=== PATIENT | male | born 1965 | race Caucasian/White ===

== ENCOUNTER 2017-10-01 23:56 | Inpatient (IN) | payer OTHER ==
[2017-10-02] MEDS ORDERED: NITROGLYCERIN OINT 1 INCH/GM PACKET TOPICAL STA (00:32)
[2017-10-02] MEDS ORDERED: HEPARIN SODIUM,PORCINE 5,000 UNIT/ML 1 ML VIAL IV STA (00:32)
--- NOTE | 2017-10-02 00:37 | ED ---
General Adult HPI - General Chief complaint: Chest Pain Stated complaint: chest pain sent from [facility] Time Seen by Provider: 10/02/17 00:10 Source: patient Mode of arrival: ambulatory Limitations: no limitations - History of Present Illness Initial comments: Ovidio is a 51-year-old diabetic male with a past medical history significant for CAD and CABG in 2011. Patient states that because he has not had medical insurance he has not seen a primary care physician or been on any medications for approximately one year. States that he has a history of GERD as well as chronic bronchitis. He states that for the past 2-3 weeks he has noted that he has had a cough which she attributed to his bronchitis, as well as epigastric discomfort which he believed was GERD. Patient reports that he did a 14 day course of omeprazole with mild improvement in his epigastric discomfort, however he has continued to have a nonproductive cough. Patient denies any active chest pain, he does state that he has a nonproductive cough and that when he lays flat he feels as though he cannot breathe. He reports that he was prompted to go to the emergency department yesterday because after working a 10 hour day he noted that his bilateral lower extremities were swollen and that he could not "see my ankles". Patient reports that he has never noted lower extremity edema prior to yesterday and this became alarming to him. Patient was evaluated at an outside hospital where he was noted to have an elevated troponin of 2.25, and elevated BNP of greater than 10 times the normal limit, and addition he was noted to have uncontrolled blood glucose with a blood glucose of greater than 400 but no signs of DKA. Patient declined ambulance transfer and instead drove himself to our hospital for reevaluation and admission. - Related Data Home Medications Medication Instructions Recorded Confirmed No Known Home Medications 10/02/17 10/02/17 Allergies Allergy/AdvReac Type Severity Reaction Status Date / Time No Known Allergies Allergy Verified 10/02/17 00:06 Review of Systems ROS Statement: Those systems with pertinent positive or pertinent negative responses have been documented in the HPI. ROS Other: All systems not noted in ROS Statement are negative. Constitutional: Denies: fever, chills ENT: Denies: throat pain Respiratory: Reports: cough, dyspnea Cardiovascular: Reports: chest pain. Denies: palpitations Endocrine: Denies: fatigue Gastrointestinal: Reports: abdominal pain. Denies: nausea, vomiting Genitourinary: Denies: urgency, dysuria Musculoskeletal: Reports: back pain Skin: Denies: rash Neurological: Denies: headache, weakness Psychiatric: Denies: anxiety, depression Hematological/Lymphatic: Denies: easy bleeding, easy bruising Past Medical History Past Medical History: Diabetes Mellitus, GERD/Reflux, Hypertension, Myocardial Infarction ([place]) History of Any Multi-Drug Resistant Organisms: None Reported Past Surgical History: Coronary Bypass/CABG Past Psychological History: No Psychological Hx Reported Smoking Status: Current some day smoker Past Alcohol Use History: None Reported Past Drug Use History: None Reported General Exam Limitations: no limitations General appearance: alert, in no apparent distress Head exam: Present: atraumatic, normocephalic Eye exam: Present: normal appearance, PERRL ENT exam: Present: normal exam Neck exam: Present: normal inspection Respiratory exam: Absent: respiratory distress Cardiovascular Exam: Present: tachycardia GI/Abdominal exam: Present: soft. Absent: distended Rectal exam: Present: deferred Extremities exam: Present: full ROM, normal capillary refill, pedal edema Back exam: Present: normal inspection Neurological exam: Present: alert, oriented X3 Psychiatric exam: Present: normal affect, normal mood Skin exam: Present: warm, dry Course Vital Signs 10/02/17 10/02/17 00:01 01:43 Temperature 98.3 F Pulse Rate 112 H 103 H Respiratory 16 20 Rate Blood Pressure 114/79 121/77 O2 Sat by Pulse 93 L 99 Oximetry EKG Findings - EKG Comments: EKG Findings:: EKG at 12:11 AM - rate is 1:15, rhythm is sinus tachycardia, AR intervals 154, QRS 108, QTC is [address] depressions in the lateral leads. Q ST elevations. When compared to the EKG obtained at the previous hospital if no significant changes. Medical Decision Making - Medical Decision Making The patient was seen and evaluated, history was obtained from the patient and review of outside medical record Patient noted to have an elevated troponin, elevated BNP, chest x-ray suggestive of CHF in addition the patient has a blood glucose greater than 400 and received no treatment prior to transfer Considering the patient does appear to be in CHF I will treat the blood glucose with insulin and hold on IV fluid bolus Repeat labs were ordered Patient care was discussed with Dr. Campuzano who agrees with plan for admission for in STEMI with heparin infusion, nitro ointment, echo ordered for the morning and consult to cardiology Sliding scale insulin was ordered Patient continued to rest comfortably throughout his stay in the emergency Department was admitted to the hospital under the care of Dr. Campuzano. - Lab Data Result diagrams: 10/02/17 00:16 10/02/17 00:16 Lab Results 10/02/17 10/02/17 10/02/17 Range/Units 00:16 00:16 00:16 WBC 11.8 H (3.8-10.6) k/uL RBC 5.11 (4.30-5.90) m/uL Hgb 14.3 (13.0-17.5) gm/dL Hct 42.9 (39.0-53.0) % MCV 84.0 (80.0-100.0) fL MCH 28.0 (25.0-35.0) pg MCHC 33.3 (31.0-37.0) g/dL RDW 13.8 (11.5-15.5) % Plt Count 314 (150-450) k/uL Neutrophils % 82 % Lymphocytes % 12 % Monocytes % 4 % Eosinophils % 1 % Basophils % 0 % Neutrophils # 9.7 H (1.3-7.7) k/uL Lymphocytes # 1.5 (1.0-4.8) k/uL Monocytes # 0.4 (0-1.0) k/uL Eosinophils # 0.1 (0-0.7) k/uL Basophils # 0.0 (0-0.2) k/uL PT (9.0-12.0) sec INR (<1.2) APTT (22.0-30.0) sec Sodium 133 L (137-145) mmol/L Potassium 4.4 (3.5-5.1) mmol/L Chloride 98 (98-107) mmol/L Carbon Dioxide 22 (22-30) mmol/L Anion Gap 13 mmol/L BUN 17 (9-20) mg/dL Creatinine 0.60 L (0.66-1.25) mg/dL Est GFR (CKD-EPI)AfAm >90 (>60 ml/min/1.73 sqM) Est GFR (CKD-EPI)NonAf >90 (>60 ml/min/1.73 sqM) Glucose 355 H (74-99) mg/dL Calcium 9.1 (8.4-10.2) mg/dL Magnesium 2.0 (1.6-2.3) mg/dL Total Bilirubin 0.6 (0.2-1.3) mg/dL AST 53 (17-59) U/L ALT 57 (21-72) U/L Alkaline Phosphatase 94 (38-126) U/L Total Creatine Kinase 127 (55-170) U/L CK-MB (CK-2) 1.9 (0.0-2.4) ng/mL CK-MB (CK-2) Rel Index 1.5 Troponin I 2.600 H* (0.000-0.034) ng/mL NT-Pro-B Natriuret Pep pg/mL Total Protein 6.3 (6.3-8.2) g/dL Albumin 3.6 (3.5-5.0) g/dL 10/02/17 10/02/17 Range/Units 00:16 00:16 WBC (3.8-10.6) k/uL RBC (4.30-5.90) m/uL Hgb (13.0-17.5) gm/dL Hct (39.0-53.0) % MCV (80.0-100.0) fL MCH (25.0-35.0) pg MCHC (31.0-37.0) g/dL RDW (11.5-15.5) % Plt Count (150-450) k/uL Neutrophils % % Lymphocytes % % Monocytes % % Eosinophils % % Basophils % % Neutrophils # (1.3-7.7) k/uL Lymphocytes # (1.0-4.8) k/uL Monocytes # (0-1.0) k/uL Eosinophils # (0-0.7) k/uL Basophils # (0-0.2) k/uL PT 10.7 (9.0-12.0) sec INR 1.1 (<1.2) APTT 20.9 L (22.0-30.0) sec Sodium (137-145) mmol/L Potassium (3.5-5.1) mmol/L Chloride (98-107) mmol/L Carbon Dioxide (22-30) mmol/L Anion Gap mmol/L BUN (9-20) mg/dL Creatinine (0.66-1.25) mg/dL Est GFR (CKD-EPI)AfAm (>60 ml/min/1.73 sqM) Est GFR (CKD-EPI)NonAf (>60 ml/min/1.73 sqM) Glucose (74-99) mg/dL Calcium (8.4-10.2) mg/dL Magnesium (1.6-2.3) mg/dL Total Bilirubin (0.2-1.3) mg/dL AST (17-59) U/L ALT (21-72) U/L Alkaline Phosphatase (38-126) U/L Total Creatine Kinase (55-170) U/L CK-MB (CK-2) (0.0-2.4) ng/mL CK-MB (CK-2) Rel Index Troponin I (0.000-0.034) ng/mL NT-Pro-B Natriuret Pep 4760 pg/mL Total Protein (6.3-8.2) g/dL Albumin (3.5-5.0) g/dL Disposition Clinical Impression: NSTEMI (non-ST elevated myocardial infarction), Uncontrolled diabetes mellitus , Heart failure Disposition: ADMITTED IP TO THIS HOSP Referrals: None,Stated [Primary Care Provider] - 1-2 days Decision Time: 01:22
[2017-10-02 00:46] LABS: Basophils % (A) 0 %; Eosinophils # (A) 0.1 k/uL (0-0.7); Eosinophils % (A) 1 %; HCT 42.9 % (39.0-53.0); HGB 14.3 gm/dL (13.0-17.5); Lymphocytes # (A) 1.5 k/uL (1.0-4.8); Lymphocytes % (A) 12 %; MCHC 33.3 g/dL (31.0-37.0); Mean Platelet Volume 6.9; Monocytes # (A) 0.4 k/uL (0-1.0); Monocytes % (A) 4 %; Neutrophils # (A) 9.7 k/uL (1.3-7.7); Neutrophils % (A) 82 %; Platelet Count 314 k/uL (150-450); RBC 5.11 m/uL (4.30-5.90); RDW 13.8 % (11.5-15.5); WBC 11.8 k/uL (3.8-10.6)
[2017-10-02 00:57] LABS: ALT 57 U/L (21-72); AST 53 U/L (17-59); Albumin 3.6 g/dL (3.5-5.0); Alkaline Phosphatase 94 U/L (38-126); Anion Gap 13 mmol/L; Blood Urea Nitrogen 17 mg/dL (9-20); Calcium 9.1 mg/dL (8.4-10.2); Carbon Dioxide 22 mmol/L (22-30); Chloride 98 mmol/L (98-107); Glucose 355 mg/dL (74-99); Potassium 4.4 mmol/L (3.5-5.1); Sodium 133 mmol/L (137-145); Total Bilirubin 0.6 mg/dL (0.2-1.3); Total Protein 6.3 g/dL (6.3-8.2)
[2017-10-02] MEDS: HEPARIN SOD,PORK IN 0.45% NACL 25,000 UNIT in 0.45% NACL 1 500ML.BAG IV SCH (00:58)
[2017-10-02 01:07] LABS: INR 1.1 (<1.2); Prothrombin Time 10.7 sec (9.0-12.0)
--- NOTE | 2017-10-02 01:11 | US ---
EXAMINATION TYPE: US venous doppler duplex LE BI DATE OF EXAM: 10/02/2017 12:34 AM COMPARISON: NONE CLINICAL HISTORY: Pain. Edema SIDE PERFORMED: Bilateral TECHNIQUE: The lower extremity deep venous system is examined utilizing real time linear array sonog dee with graded compression, doppler sonography and color-flow sonography. VESSELS IMAGED: External Iliac Vein (EIV) Common Femoral Vein Deep Femoral Vein Greater Saphenous Vein * Femoral Vein Popliteal Vein Small Saphenous Vein * Proximal Calf Veins (* superficial vessels) Right Leg: Negative for DVT Left Leg: Negative for DVT No evidence of DVT bilateral legs. IMPRESSION: Normal exam. No evidence of deep venous thrombosis in the left and right leg.
[2017-10-02 01:13] LABS: Partial Thromboplastin Time 20.9 sec (22.0-30.0)
[2017-10-02 01:18] LABS: Creatine Kinase MB 1.9 ng/mL (0.0-2.4)
[2017-10-02 01:19] LABS: Troponin I 2.6 ng/mL (0.000-0.034)
[2017-10-02] MEDS ORDERED: NALOXONE 0.4 MG/ML 1 ML VIAL IV PRN (01:22)
[2017-10-02] MEDS ORDERED: ACETAMINOPHEN TAB 325 MG TAB PO PRN (01:22)
[2017-10-02 03:09] LABS: Glucose,Whole Blood 272 mg/dL (75-99)
[2017-10-02 05:51] LABS: Glucose,Whole Blood 272 mg/dL (75-99)
[2017-10-02] MEDS: INSULIN ASPART 100 UNIT/ML 1 ML 10 ML VIAL SQ SCH ×4 (06:09→21:28)
[2017-10-02 06:53] LABS: Creatine Kinase MB 1.8 ng/mL (0.0-2.4)
[2017-10-02 06:56] LABS: Troponin I 2.51 ng/mL (0.000-0.034)
[2017-10-02] MEDS ORDERED: NITROGLYCERIN SL TABS 0.4 MG TAB SUBLINGUAL PRN (08:12)
[2017-10-02] MEDS ORDERED: SODIUM CHLORIDE 0.9% 1,000 ML in EMPTY BAG 1 BAG IV ONE (08:12)
[2017-10-02] MEDS ORDERED: ALPRAZolam 0.25 MG TAB PO PRN (08:12)
--- NOTE | 2017-10-02 09:37 | CONS ---
CONSULTATION Mr. Arrington is a 51-year-old male who was transferred from [facility] for cardiac evaluation. Patient has underwent coronary artery bypass grafting in 2011 and has not seen a physician in a while because of his insurance. He has a history of chronic tobacco use, 2 packs a day, diabetes mellitus, and hyperlipidemia. He has not been taking any medication for over a year. For the last 2 weeks, he has been complaining of progressive symptoms of dyspnea, cough, and symptoms that suggest gastroesophageal reflux disease to him, then started to have peripheral edema, clear PND and orthopnea and severe limitation in his physical activity. He went to the emergency room at [facility] yesterday and was found to have elevation of his troponin and evidence of congestive heart failure and was transferred to [facility]. Prior to this, patient says that he has been active physically without any difficulty. He denies any dizziness, palpitation. No clear symptoms of progressive angina or change in his breathing up to the last few weeks. He has no history of documented arrhythmia. He has underwent repeat cardiac catheterization 2 years ago in [facility] and according to him, 2 of 3 bypasses were open, had collateral on the third one, although details of that is not available to me and clinical observation was recommended. His coronary risk factors are positive for the chronic tobacco use. He was up to 2 packs a day until the end of August. He has history of diabetes, but has not been taking any medication. History of hyperlipidemia. REVIEW OF SYSTEMS: RESPIRATORY SYSTEM: He has history of bronchitis, cough, and progressive dyspnea. GI SYSTEM: He has symptoms of gastroesophageal reflux disease. No recent GI bleeding. No peptic ulcer disease. SYSTEM: No dysuria or hematuria. NERVOUS SYSTEM: No history of stroke or seizure. SOCIAL HISTORY: Denies any alcohol abuse. He smokes as noted. PHYSICAL EXAMINATION: He is a 51-year-old male, alert, oriented, in no apparent distress. Blood pressure 114/70 with a heart rate in the 100s. HEAD: Normocephalic. EYES: Sclerae nonicteric. NECK: Good upstroke with increased jugular venous pressure. Lungs with few crackles at the bases. HEART: Regular rate and rhythm. S1, S2 with systolic murmur at the base, no rub. ABDOMEN: Soft, nontender. Positive bowel sounds, no organomegaly. EXTREMITIES: +1 edema bilaterally. LAB DATA: Revealed a troponin of 2.6 and 2.51. NT proBNP of 4760. BUN and creatinine of 17 and 0.6, potassium 4.4, hemoglobin of 14.3, white blood cell of 11.8. EKG revealed a sinus mechanism, normal axis and intervals with ST-segment changes laterally, cannot exclude ischemia with right axis deviation, left posterior fascicular block. Venous duplex scan of the lower extremity shows no evidence of DVT. His chest x-ray performed in [place] was consistent was congestive heart failure. IMPRESSION: 1. Symptoms of congestive heart failure, left ventricular systolic function is unavailable. 2. Evidence of non ST-segment elevation myocardial infarction in a patient with history of prior coronary artery bypass grafting. 3. Diabetes, not treated. 4. Hyperlipidemia. 5. Chronic tobacco use. Patient stopped recently. RECOMMENDATION: From the cardiac standpoint, patient will need coronary angiography, but I would like to wait 24 hours to improve his failure. At this time, he cannot lay supine. I will start him on IV Lasix, beta stevenson, an DECLAN inhibitor in addition to statin aspirin. I will obtain echocardiogram with Doppler. I will try to obtain the results of his prior workup that was done including the coronary artery bypass grafting and the cardiac catheterization done 2 years ago. Depending on results of testing, further recommendation will be made. Thank you for this consult. Will follow with you. CHEYANNE / JOSUEN: [id number] /
[2017-10-02] MEDS: FUROSEMIDE 10 MG/ML 4 ML VIAL IV SCH ×2 (09:44→21:28)
[2017-10-02] MEDS: ASPIRIN 81 MG PO SCH (09:44)
[2017-10-02] MEDS: ATORVASTATIN 40 MG TAB PO SCH (09:44)
[2017-10-02] MEDS: METOPROLOL TARTRATE 25 MG TAB PO SCH ×2 (09:44→21:28)
[2017-10-02] MEDS: LISINOPRIL 2.5 MG TAB PO SCH ×2 (09:45→21:28)
--- NOTE | 2017-10-02 10:12 | XR ---
EXAMINATION TYPE: XR chest 2V DATE OF EXAM: 10/02/2017 COMPARISON: 10/01/2017 and 12/01/2012 HISTORY: 51-year-old male follow-up CHF TECHNIQUE: Frontal and lateral views FINDINGS: Median sternotomy wires are present with postoperative clips. Heart borderline enlarged. Hyperinflati on with flattening of the hemidiaphragms. Trace pleural effusions are present with redemonstrated int erstitial densities and Martin B lines. Opacity is slightly more confluent at the peripheral right ba se. IMPRESSION: Continued CHF with interstitial edema. Slight worsening aeration at the right base. Trace effusions p ersist.
[2017-10-02 12:07] LABS: Hemoglobin A1C 11.1 % (4.0-6.0)
[2017-10-02 12:09] LABS: Glucose,Whole Blood 394 mg/dL (75-99)
--- NOTE | 2017-10-02 12:28 | HP ---
HISTORY AND PHYSICAL CHIEF COMPLAINT: A 51-year-old with chest pain and leg swelling. HISTORY OF PRESENT ILLNESS: A 51-year-old white male with past medical history of coronary artery disease, diabetes mellitus, hypertension, has not been taking any medications for at least 3 months. He is transferred here from [facility] for cardiac evaluation, chronic 2 packs a day smoking, diabetes mellitus, dyslipidemia, no medicines for well over a year, progressive dyspnea, cough, congestion, and leg swelling. He is able to do his job. He had increased swelling lately at which time he went to hospital with history of chronic bronchitis. 14 POINT REVIEW OF SYSTEMS: Negative except as mentioned in HPI. SOCIAL HISTORY: Single. No alcohol. Smokes 2 packs a day. Works in a machine shop. PHYSICAL EXAM: White male in no acute distress. CARDIOVASCULAR: S1, S2. LUNGS: Clear. GI: Soft. Blood pressure 114/70, respiratory rate 12-14. HEAD: Normocephalic, atraumatic. Pupils equal, round, reactive to light and accommodation. LUNGS: This is a few rales at the base. HEART: S1, S2 without any murmurs, rubs or gallops. ABDOMEN: Soft, nontender. EXTREMITIES: 1+ pedal edema. BNP of 4760, troponin 2.6, 2.51, BUN 17, creatinine 0.6, potassium 4.4, hemoglobin 14.3, white count 11.8. EKG showed sinus rhythm, ST-T lateral changes. ASSESSMENT: 1. Congestive heart failure. Echo to assess left ventricular function, non STEMI, status post coronary artery bypass grafting.. 2. [id number] diabetes mellitus, not treated. 3. Dyslipidemia. 4. Nicotine addiction. 5. Anxiety. He is to go to coronary angiogram. Possibly aspirin, beta blockers, cholesterol pills, DECLAN inhibitors will be started. Echo is pending. Please see further orders. MMODL / IJN: [id number] /
[2017-10-02 12:45] LABS: Creatine Kinase MB 1.4 ng/mL (0.0-2.4)
[2017-10-02 12:54] LABS: Troponin I 2.43 ng/mL (0.000-0.034)
[2017-10-02 16:58] LABS: Glucose,Whole Blood 282 mg/dL (75-99)
[2017-10-02 21:05] LABS: Glucose,Whole Blood 285 mg/dL (75-99)
[2017-10-03] MEDS: HEPARIN SOD,PORK IN 0.45% NACL 25,000 UNIT in 0.45% NACL 1 500ML.BAG IV SCH (00:38)
[2017-10-03 06:04] LABS: Glucose,Whole Blood 216 mg/dL (75-99)
[2017-10-03] MEDS: METOPROLOL TARTRATE 25 MG TAB PO SCH ×2 (06:33→20:52)
[2017-10-03] MEDS: ATORVASTATIN 40 MG TAB PO SCH (06:33)
[2017-10-03] MEDS: LISINOPRIL 2.5 MG TAB PO SCH ×2 (06:33→20:52)
[2017-10-03] MEDS: FUROSEMIDE 10 MG/ML 4 ML VIAL IV SCH (06:34)
[2017-10-03] MEDS: ASPIRIN 81 MG PO SCH (06:34)
[2017-10-03] MEDS: INSULIN ASPART 100 UNIT/ML 1 ML 10 ML VIAL SQ SCH ×4 (06:35→21:35)
[2017-10-03 06:41] LABS: Anion Gap 10 mmol/L; Blood Urea Nitrogen 15 mg/dL (9-20); Calcium 8.9 mg/dL (8.4-10.2); Carbon Dioxide 24 mmol/L (22-30); Chloride 101 mmol/L (98-107); Glucose 223 mg/dL (74-99); Potassium 4.2 mmol/L (3.5-5.1); Sodium 135 mmol/L (137-145)
[2017-10-03] MEDS ORDERED: ATORVASTATIN 80 MG TAB PO ONE (08:00)
[2017-10-03] MEDS ORDERED: ASPIRIN 325 MG TAB PO ONE (08:00)
[2017-10-03] MEDS ORDERED: IV FLUID CONTINUATION 1,000 ML IV ONE (09:03)
[2017-10-03] MEDS ORDERED: fentaNYL (PF) 50 MCG/ML 2 ML AMP IV ONE (09:19)
[2017-10-03] MEDS ORDERED: diphenhydrAMINE 50 MG/ML 1 ML VIAL IVP ONE (09:19)
[2017-10-03] MEDS ORDERED: LIDOCAINE 1% INJ 10MG/ML (20 ML MDV) SQ ONE (09:26)
[2017-10-03] MEDS ORDERED: MIDAZOLAM 2 MG/2 ML VIAL IV ONE (09:26)
[2017-10-03] MEDS ORDERED: BIVALIRUDIN BOLUS 250 MG/50 ML IV ONE (09:42)
[2017-10-03] MEDS ORDERED: BIVALIRUDIN 250 MG in SODIUM CHLORIDE 0.9% 50 ML IV ONE (09:44)
[2017-10-03] MEDS ORDERED: IOPAMIDOL-370 125ML BTL INJ ONE (09:45)
[2017-10-03] MEDS ORDERED: PRASUGREL 10 MG TAB PO ONE (09:45)
[2017-10-03] MEDS: NITROGLYCERIN 1000MCG/10ML SYRINGE INTRACORON ONE ×2 (09:48→09:53)
[2017-10-03] MEDS ORDERED: SODIUM CHLORIDE 0.9% 1,000 ML IV ONE (10:00)
[2017-10-03] MEDS ORDERED: IOPAMIDOL-370 100ML BTL INJ ONE ×2 (10:07→10:17)
[2017-10-03] MEDS ORDERED: NITROGLYCERIN SL TABS 0.4 MG TAB SUBLINGUAL PRN (10:27)
[2017-10-03] MEDS ORDERED: ZOLPIDEM 5 MG TAB PO PRN (10:27)
[2017-10-03] MEDS ORDERED: MAG HYDROX/AL HYDROX/SIMETH 30 ML CUP PO PRN (10:27)
[2017-10-03] MEDS ORDERED: ATROPINE SULFATE 0.1 MG/ML 10ML SYRINGE IV PRN (10:27)
[2017-10-03] MEDS ORDERED: RX INFO: IV CONTRAST WAS GIVEN 1 EACH MISC MISCELLANE PRN (10:27)
[2017-10-03] MEDS ORDERED: SODIUM CHLORIDE 0.9% 1,000 ML IV SCH (10:30)
--- NOTE | 2017-10-03 11:14 | PTCA ---
PERCUTANEOUSTRANS CORORONARY ANGIOGRAPHY Mr. Garcia is a 51-year-old male with a known history of coronary disease who presented with non ST-segment elevation myocardial infarction and symptoms of congestive heart failure, underwent cardiac catheterization, was found to have subtotally occluded saphenous vein graft to the obtuse marginal branch. In view of that, recommendation was made regarding angioplasty and stenting. The procedure, risks and complication were discussed with the patient who is in full understanding and agreement. PROCEDURE: A 6-Danish left coronary bypass guiding catheter was introduced into the system. After cannulating the ostium, attempt to advance a 0.014 balanced medium weight J-wire were unsuccessful and that wire was removed and a 0.014 Whisper J-wire was advanced, positioned distally, attempt to advance a 2.25 x 12 mm Trek balloon was unsuccessful. That balloon was removed and another 0.014 Whisper J-wire was advanced next to the first one in a angel fashion. Subsequently 1.5 x 8 mm Trek balloon was advanced and multiple inflations at 10 atmospheres were done. Following that, the balloon was removed and a 2.25 x 12 mm Trek balloon was advanced and inflation up to 10 atmospheres were done. Following that, the balloon was removed and a 2.25 x 18 mm Xience Alpine stent was deployed. It was dilated at 16 atmospheres. After removing that balloon, a 2.25 x 12 mm Xience Alpine stent was deployed proximal to the first one and it was dilated at 16 atmospheres. Subsequently an inflation overlap segment was done at 16 atmospheres. After the last inflation, after appropriate wait, the balloon and the guidewire were withdrawn back in the guiding catheter. Images were obtained, repeated. Those images reveal stable successful stenting. At that point, the guiding catheter, the balloon and the guidewire were removed and the left ventricle end-diastolic pressure was measured. Following that, catheter was removed. Sheath was sutured in place. The patient is returned to his room in stable condition. Of note, the patient had throat discomfort with the inflation that resulted improved at the end of the procedure. He had no significant EKG changes. He received Angiomax per protocol as well as oral loading dose off Effient. RESULTS: Successful stenting of a saphenous vein graft to the obtuse marginal branch with reduction in stenosis from 99% to 0%. There was retrograde filling into the distal circumflex and the second obtuse marginal branch. RECOMMENDATIONS: Patient will be continued on aspirin, Effient, beta stevenson, DECLAN inhibitors and statin. The importance of dual antiplatelet treatment were discussed with the patient who is in full understanding and agreement. Duration of procedure: 56 minutes. CHEYANNE / RYAN: [id number] /
--- NOTE | 2017-10-03 11:29 | CC ---
CARDIAC CATHETERIZATION REPORT Mr. Arrington is a 51-year-old male with a known history of diabetes, hyperlipidemia, hypertension, and chronic tobacco use as well as history of coronary artery bypass grafting who unfortunately for over a year has not seen a physician and has not been taking any medication. He presented to the emergency room with symptoms of progressive dyspnea, congestive heart failure, non ST-segment elevation myocardial infarction. On his echocardiogram was consistent with cardiomyopathy. In view of that, recommendation made regarding cardiac catheterization. The procedures, risks and complication were discussed with the patient who is in full understanding and agreement. PROCEDURE: Patient was brought to the laborer landscape in a fasting semi-sedated state after receiving fentanyl and Benadryl and achieving moderate conscious sedated state. Using Xylocaine anesthesia in the Seldinger technique, a 6-Qatari sheath was introduced in the right femoral artery. Selective right and left angiography performed 6-Qatari 4 bend right and left Maria De Jesus catheter, multiple views of the coronary artery including hemiaxial views were obtained. Following that, the 6-Qatari right Maria De Jesus catheter was used to cannulate the saphenous vein graft to the obtuse marginal branch and MOLINA to the LAD images of the grafts were obtained. Following that, angioplasty and stenting was performed. Following that, a 6-Qatari tight pigtail catheter was introduced in the left ventricle and pressures were calculated. Following that, catheters were removed, sheath was sutured in place. FINDINGS: 1. FLUOROSCOPY: There was severe calcification involving the coronary arteries, predominantly the left main and the LAD. 2. LEFT MAIN: This is a large-sized vessel bifurcating into left circumflex, left anterior descending artery, left main coronary artery has a 40% to 50% stenosis distally. 3. LEFT ANTERIOR DESCENDING ARTERY: This vessel is totally occluded proximally with no significant antegrade flow. 4. LEFT CIRCUMFLEX: This is a large dominant vessel, had a 99% stenosis proximally, giving rise to 3 obtuse marginal branches, distally bifurcating into PDA and posterolateral segment branches. There is slow flow into the obtuse marginal branch as well as the distal vessel. The vessel appears to be diffusely disease. 5. RIGHT CORONARY ARTERY: This is a nondominant vessel, diffusely diseased, giving collateral to the distal left circumflex. 6. SAPHENOUS VEIN GRAFT TO THE OBTUSE MARGINAL BRANCH: The proximal anastomotic site is patent. The distal anastomotic site appears to be patent in the proximal segment of the body of the graft. There is long area of stenosis with area up to 99% with very slow flow in the distal vessel. 7. MOLINA TO LAD: The distal anastomotic site is patent. The flow in the LAD is brisk. There is a plaque of about 60% to 70% in the distal anastomotic site. There is flow into the diagonal branch. 8. LEFT VENTRICULOGRAM: Left ventriculogram is not performed. 9. HEMODYNAMICS: There was no gradient across the aortic valve. The left ventricle end-diastolic pressure was 34 mmHg. CONCLUSION: 1. Calcified coronary artery. 2. Severe triple-vessel coronary artery disease. 3. Patent MOLINA to LAD with disease at the distal anastomotic site. 4. Subtotally occluded saphenous vein graft to the obtuse marginal branch. 5. Elevated left ventricle end-diastolic pressure. RECOMMENDATION: In view of finding anatomy, I would recommend proceeding with angioplasty and stenting of the saphenous vein graft. The procedures, risks and complications were discussed with the patient who is in full understanding and agreement. MMODL / IJN: [id number] /
[2017-10-03 11:43] LABS: Glucose,Whole Blood 241 mg/dL (75-99)
[2017-10-03] MEDS ORDERED: IPRATROPIUM-ALBUTEROL 3 ML NEB INHALATION STA (12:43)
[2017-10-03 14:08] VITALS: BMI 25.9
[2017-10-03] MEDS: IPRATROPIUM-ALBUTEROL 3 ML NEB INHALATION SCH ×2 (15:46→19:36)
[2017-10-03 17:03] LABS: Glucose,Whole Blood 221 mg/dL (75-99)
[2017-10-03] MEDS: SPIRONOLACTONE 25 MG TAB PO SCH (17:49)
[2017-10-03] MEDS: FUROSEMIDE 40 MG TAB PO SCH (20:52)
[2017-10-03 21:11] LABS: Glucose,Whole Blood 253 mg/dL (75-99)
--- NOTE | 2017-10-03 22:20 | PN ---
PROGRESS NOTE SUBJECTIVE: A 51-year-old white male with non-STEMI, who is status post angioplasty x2. CARDIOVASCULAR: S1, S2. LUNGS: Clear. GI: Soft. HEMATOLOGY: Negative Homans'. ASSESSMENT: 1. Status post non-ST elevation myocardial infarction. 2. Coronary artery disease. 3. Hypertension. 4. Poor compliance as an outpatient. commissary worker evaluating for medications the patient can afford as an outpatient. MMODL / IJN: [id number] /
[2017-10-04] MEDS: IPRATROPIUM-ALBUTEROL 3 ML NEB INHALATION PRN ×5 (00:48→20:19)
[2017-10-04 05:25] LABS: Anion Gap 11 mmol/L; Blood Urea Nitrogen 12 mg/dL (9-20); Calcium 8.6 mg/dL (8.4-10.2); Carbon Dioxide 20 mmol/L (22-30); Chloride 104 mmol/L (98-107); Glucose 249 mg/dL (74-99); Potassium 4.3 mmol/L (3.5-5.1); Sodium 135 mmol/L (137-145)
[2017-10-04] MEDS: ALPRAZolam 0.5 MG TAB PO PRN ×2 (05:55→21:32)
[2017-10-04 06:15] LABS: Glucose,Whole Blood 247 mg/dL (75-99)
[2017-10-04] MEDS: INSULIN ASPART 100 UNIT/ML 1 ML 10 ML VIAL SQ SCH ×4 (06:37→21:31)
[2017-10-04] MEDS: SPIRONOLACTONE 25 MG TAB PO SCH (10:23)
[2017-10-04] MEDS: METOPROLOL TARTRATE 25 MG TAB PO SCH ×2 (10:23→21:31)
[2017-10-04] MEDS: FUROSEMIDE 40 MG TAB PO SCH ×2 (10:23→21:31)
[2017-10-04] MEDS: ASPIRIN 81 MG PO SCH (10:23)
[2017-10-04] MEDS: PRASUGREL 10 MG TAB PO SCH (10:23)
[2017-10-04] MEDS: LISINOPRIL 2.5 MG TAB PO SCH ×2 (10:23→21:31)
[2017-10-04] MEDS: ATORVASTATIN 40 MG TAB PO SCH (10:24)
[2017-10-04 11:53] LABS: Glucose,Whole Blood 288 mg/dL (75-99)
[2017-10-04 16:47] LABS: Glucose,Whole Blood 291 mg/dL (75-99)
--- NOTE | 2017-10-04 19:36 | PN ---
PROGRESS NOTE SUBJECTIVE: 51-year-old white male remains short of breath. He states whenever he dozes off, he wakes up short of breath, he states updrafts are not really helping him. Talked about getting another chest x-ray and Cardiology, pulmonary consult on him, which will do. Continue on psychiatric social worker supervisor for medications. Vital signs stable. Afebrile. Cardiovascular S1, S2. Lungs are fairly clear. Hematology negative Homans. ASSESSMENT: 1. Status post angioplasty. 2. Acute dyspnea. 3. Suspect some chronic obstructive pulmonary disease. Continue with updrafts, oxygen p.r.n. possible sleep apnea. Get Maurizio Santiago consult. Standard postop angioplasty care. MMODL / IJN: [id number] /
--- NOTE | 2017-10-04 19:49 | XR ---
EXAMINATION TYPE: XR chest 2V DATE OF EXAM: 10/04/2017 COMPARISON: 10/02/2017 INDICATION: Dyspnea TECHNIQUE: Frontal and lateral views of the chest are obtained. FINDINGS: The heart size is normal. The pulmonary vasculature is prominent. Bibasilar infiltrates are present. Small bilateral pleural effusions are present. IMPRESSION: 1. Small bilateral pleural effusions and bibasilar infiltrates. Follow-up is recommended
[2017-10-04 21:12] LABS: Glucose,Whole Blood 298 mg/dL (75-99)
--- NOTE | 2017-10-04 22:21 | PN ---
PROGRESS NOTE This patient presented with congestive heart failure, ischemic cardiomyopathy. Underwent a stent to the saphenous vein graft to the circumflex coronary artery. Patient is doing fairly well. He remains stable. The patient does have a severely impaired left ventricular systolic function. Patient's blood pressure is 110/75 mmHg. First and second heart sounds are normal. Lungs are clear to auscultation and percussion. The patient will be ambulated. Continue the current medications. If the patient's blood pressure permits, we will increase the dose of the Zestril MMODL / IJN: [id number] /
[2017-10-05 06:12] LABS: Glucose,Whole Blood 199 mg/dL (75-99)
[2017-10-05] MEDS: INSULIN ASPART 100 UNIT/ML 1 ML 10 ML VIAL SQ SCH ×4 (06:42→21:25)
[2017-10-05] MEDS: ATORVASTATIN 40 MG TAB PO SCH (10:22)
[2017-10-05] MEDS: LISINOPRIL 2.5 MG TAB PO SCH ×2 (10:22→20:11)
[2017-10-05] MEDS: METOPROLOL TARTRATE 25 MG TAB PO SCH ×2 (10:22→20:11)
[2017-10-05] MEDS: ASPIRIN 81 MG PO SCH (10:22)
[2017-10-05] MEDS: FUROSEMIDE 40 MG TAB PO SCH ×2 (10:22→20:10)
[2017-10-05] MEDS: SPIRONOLACTONE 25 MG TAB PO SCH (10:23)
[2017-10-05] MEDS: PRASUGREL 10 MG TAB PO SCH (10:23)
[2017-10-05] MEDS: IPRATROPIUM-ALBUTEROL 3 ML NEB INHALATION PRN ×2 (11:20→19:59)
[2017-10-05 11:46] LABS: Glucose,Whole Blood 271 mg/dL (75-99)
[2017-10-05 17:27] LABS: Glucose,Whole Blood 292 mg/dL (75-99)
[2017-10-05] MEDS: methylPREDNISolone SOD SUCCI 125 MG/2 ML VIAL IV SCH ×2 (18:11→20:11)
[2017-10-05] MEDS: BUDESONIDE 0.5 MG/2 ML NEBU INHALATION SCH (20:01)
[2017-10-05] MEDS: HEPARIN SODIUM,PORCINE 5,000 UNIT/ML 1 ML VIAL SQ SCH (20:10)
[2017-10-05] MEDS: FAMOTIDINE 20 MG TAB PO SCH (20:10)
[2017-10-05 20:54] LABS: Glucose,Whole Blood 268 mg/dL (75-99)
--- NOTE | 2017-10-05 21:04 | CONS ---
CONSULTATION Mode Arrington is a 51-year-old male who presented to the ED at [facility] with a 2-3 week history of cough with wheezing and shortness of breath. He subsequently was seen in the hospital, thought to have an acute myocardial infarction and underwent cardiac cath with percutaneous transluminal angioplasty of the saphenous vein graft of his previous coronary artery bypass. He continues to have cough and some shortness of breath and a pulmonary consultation was placed. He denies any chest pain at this time. He gives no previous history of asthma or COPD, but has been a smoker in the past and does have episodes where he has cough and wheezing. He did not seek medical attention and apparently because he did not have any insurance. PAST MEDICAL HISTORY: Positive for coronary artery disease status post coronary artery bypass. No clear history of COPD or asthma. History of congestive heart failure, hypertension, diabetes mellitus type 2. FAMILY HISTORY: Positive for asthma apparently in one of his cousin. SOCIAL HISTORY: Patient smoked 1 and half packs of cigarettes per day. 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 MEDICATIONS: At this time include acetaminophen, Maalox, DuoNeb, Xanax, aspirin, Lipitor, atropine, Pepcid, Lasix, heparin, Zestril, Lopressor, Nitrostat, Effient, Aldactone, and Ambien. REVIEW OF SYSTEMS: Noncontributory. PHYSICAL EXAMINATION: Respiratory rate is 16, pulse rate of 88, temperature 97.4, blood pressure 92/53, O2 saturation on room air is 97%. HEENT reveals pupils that are equal. Chest with decreased breath sounds. There is wheeze on forced expiration. Cardiovascular system reveals S1, S2. Abdomen is soft. There is no pedal edema. LABS: Reveal sugar of 271. White count 11.8, eosinophil count of 0.1 thousand. Sodium 135, potassium 4.3, chloride 104, bicarb 20, BUN 12, creatinine 0.4. IMPRESSION: At this time: 1. Acute myocardial infarction status post angioplasty with known coronary artery disease. 2. Asthma with chronic obstructive pulmonary disease is likely with acute exacerbation. 3. Hypertension. 4. Diabetes mellitus, type 2. At this point in time, keep him on a short course of Solu-Medrol. Keep him on montelukast and aerosolized steroids. Continue on his cardiac medications. Keep him on GI and DVT prophylaxis. Depending on how he does we should make further changes to his care. He was counseled regarding his condition and this approach. We should also attempt to get her peak flow meter, so he may check his peak flows. He would benefit from close outpatient followup. Depending on how he does we should make further changes to his care. CHEYANNE / RYAN: [id number] /
[2017-10-05] MEDS: ALPRAZolam 0.5 MG TAB PO PRN (21:28)
--- NOTE | 2017-10-05 21:34 | PN ---
PROGRESS NOTE SUBJECTIVE: 51-year-old white male, status post angioplasty 2 days ago. His sugars are in the 200s. White count normal. Hemoglobin 14. Await Cardiology recommendations on discharge tomorrow. The patient wants to go home today. Blood pressures have been low in the high 90s over 60s, 94% on room air, respiratory 18, pulse rate 90s. Cardiovascular S1-S2. Lungs are fairly clear. Hematology: Negative Homans. Psych: Fair mood and affect. This patient will possibly be discharged home in the next 24 hours. Follow up as an outpatient. MMODL / IJN: [id number] /
[2017-10-06] MEDS: ALPRAZolam 0.5 MG TAB PO PRN (03:47)
[2017-10-06] MEDS: methylPREDNISolone SOD SUCCI 125 MG/2 ML VIAL IV SCH (03:49)
[2017-10-06 05:33] LABS: Glucose,Whole Blood 257 mg/dL (75-99)
[2017-10-06] MEDS: INSULIN ASPART 100 UNIT/ML 1 ML 10 ML VIAL SQ SCH ×2 (06:13→12:09)
[2017-10-06] MEDS: METOPROLOL TARTRATE 25 MG TAB PO SCH (08:34)
[2017-10-06] MEDS: FAMOTIDINE 20 MG TAB PO SCH (08:34)
[2017-10-06] MEDS: HEPARIN SODIUM,PORCINE 5,000 UNIT/ML 1 ML VIAL SQ SCH (08:34)
[2017-10-06] MEDS: LISINOPRIL 2.5 MG TAB PO SCH (08:34)
[2017-10-06] MEDS: ASPIRIN 81 MG PO SCH (08:34)
[2017-10-06] MEDS: ATORVASTATIN 40 MG TAB PO SCH (08:34)
[2017-10-06] MEDS: PRASUGREL 10 MG TAB PO SCH (08:34)
[2017-10-06] MEDS: SPIRONOLACTONE 25 MG TAB PO SCH (08:34)
[2017-10-06] MEDS: FUROSEMIDE 40 MG TAB PO SCH (08:34)
[2017-10-06] MEDS: IPRATROPIUM-ALBUTEROL 3 ML NEB INHALATION PRN (08:55)
[2017-10-06] MEDS: BUDESONIDE 0.5 MG/2 ML NEBU INHALATION SCH (08:55)
--- NOTE | 2017-10-06 11:10 | P.PN ---
Subjective Progress Note Date: 10/06/17 Interval history 10/06/2017patient being seen examined and evaluated today on rounds. He is resting up ambulating in the room on room air. He does occasionally have shortness of breath with exertion and activity. He also does have somewhat of a cough that is nonproductive. He states the breathing treatments are helping significantly and would like to go home with some sort of nebulizer or MDI. He is afebrile no further complaints. Being prepared for discharge. Objective - Vital Signs Vital signs: Vital Signs Temp 96.9 F L 10/06/17 00:00 Pulse 104 H 10/06/17 09:15 Resp 18 10/06/17 08:32 BP 105/68 10/06/17 08:32 Pulse Ox 96 10/06/17 08:58 Intake & Output 10/05/17 10/06/17 10/06/17 18:59 06:59 18:59 Intake Total 720 600 240 Balance 720 600 240 Weight 79 kg Intake: Oral 720 600 240 Other: Voiding Method Toilet Toilet Urinal Urinal # Voids 1 1 1 - Exam GENERAL EXAM: Alert, active, comfortable in no apparent distress. HEAD: Normocephalic. EYES: Normal reaction of pupils, equal size. NOSE: Clear with pink turbinates. THROAT: No erythema or exudates. NECK: No masses, no JVD. CHEST: No chest wall deformity. LUNGS: Equal air entry with wheezing on forced expiration CVS: S1 and S2 normal with no audible mumurs, regular rhythm. ABDOMEN: No hepatosplenomegaly, normal bowel sounds, no guarding or rigidity. EXTREMITIES: No edema noted, pedal pulses palpable. CENTRAL NERVOUS SYSTEM: No focal deficits, tone is normal in all 4 extremities. - Labs CBC & Chem 7: 10/02/17 00:16 10/04/17 05:01 Labs: Abnormal Lab Results - Last 24 Hours (Table) 10/05/17 10/05/17 10/05/17 Range/Units 11:37 17:05 20:52 POC Glucose (mg/dL) 271 H 292 H 268 H (75-99) mg/dL 10/06/17 Range/Units 05:31 POC Glucose (mg/dL) 257 H (75-99) mg/dL Assessment and Plan Assessment: Assessment Acute VT status post angioplasty with known CAD Asthma with acute exacerbation baseline asthma unknown type, needs a PFT COPD with acute exacerbation Hypertension Diabetes mellitus type 2 Plan Patient is cleared from a pulmonary standpoint for discharge Medications have been reviewed and will be continued as ordered. Prescription sent for MDIs Check peak flows Continue with pulmonary hygiene, coughing and deep breathing exercises, and supportive care. Supplemental oxygen to maintain oxygen saturations of 92% or better. Continue nebulizer treatments. GI and DVT prophylaxis. Would benefit from an outpatient PFT We will continue to monitor labs/results and adjust treatment as necessary. I performed an examination of the patient and discussed their management with the nurse practitioner. I have reviewed the nurse practitioner's note and agree with the documented findings and plan of care.
[2017-10-06 11:24] VITALS: BP 107/72; RESP 16; TEMP 97.6
[2017-10-06 11:25] LABS: Glucose,Whole Blood 371 mg/dL (75-99)
[2017-10-06 13:49] VITALS: PULSE 89
--- NOTE | 2017-10-06 14:52 | P.PN ---
Subjective Progress Note Date: 10/06/17 This is a 51-year-old gentleman who presented to the hospital with an acute myocardial infarction. He has a known history of coronary artery disease , he was found to have a subtotally occluded saphenous vein graft to the obtuse marginal branch for which he underwent angioplasty and stent placement by Dr. Sampson. Patient was seen and examined this morning, denies any chest pain or difficulty in breathing. He has been up ambulating without any difficulty. Hemodynamically he is stable. Patient has currently no insurance, we are trying to work with him on his discharge medication so the patient is able to afford them. He is currently on Effient which we will discontinue and put the patient on Plavix. We will also continue a baby aspirin daily, Lipitor 40, Lasix 40 mg by mouth twice a day, Zestril 2-1/2 mg twice a day, metoprolol 25 mg one tablet by mouth twice a day, and Aldactone 25 mg daily. Objective - Vital Signs Vital signs: Vital Signs Temp 97.6 F 10/06/17 11:23 Pulse 89 10/06/17 11:23 Resp 16 10/06/17 11:23 BP 107/72 10/06/17 11:23 Pulse Ox 98 10/06/17 11:23 Intake & Output 10/05/17 10/06/17 10/06/17 18:59 06:59 18:59 Intake Total 720 600 476 Balance 720 600 476 Weight 79 kg Intake: Oral 720 600 476 Other: Voiding Method Toilet Toilet Urinal Urinal # Voids 1 1 1 - Exam PHYSICAL EXAMINATION: GENERAL: 51-year-old gentleman in no acute distress at the time of my examination HEENT: Head is atraumatic, normocephalic. Pupils equal, round. Sclera anicteric. Conjunctiva are clear. Mucous membranes of the mouth are moist. Neck is supple. There is no elevated jugular venous pressure.] bruit is heard. HEART EXAMINATION: [Heart S1, S2 normal. No murmur or gallop heard.] CHEST EXAMINATION:[ Lungs are clear to auscultation and precussion. No chest wall tenderness is noted on palpation or with deep breathing.] ABDOMEN: [ Soft, nontender. Bowel sounds are heard. No organomegaly noted]. EXTREMITIES:[ 2+ peripheral pulses with no evidence of peripheral edema and no calf tenderness noted]. NEUROLOGIC [patient is awake, alert and oriented ?-3.] . - Labs CBC & Chem 7: 10/02/17 00:16 10/04/17 05:01 Labs: Abnormal Lab Results - Last 24 Hours (Table) 10/05/17 10/05/17 10/06/17 Range/Units 17:05 20:52 05:31 POC Glucose (mg/dL) 292 H 268 H 257 H (75-99) mg/dL 10/06/17 Range/Units 11:24 POC Glucose (mg/dL) 371 H (75-99) mg/dL Assessment and Plan Plan: Assessment and plan #1 non-ST elevation myocardial infarction status post angioplasty and stent placement of the saphenous vein graft to the OM #2 diabetes #3 hypertension #4 nicotine dependence #5 hyperlipidemia Plan We will discontinue the Effient and start the patient on Plavix 75 mg by mouth daily. We will also continue the rest of his medications. He may be able to be discharged home today. A follow-up appointment will be made with Dr. Sampson in the office in one week . DNP note has been reviewed, I agree with a documented findings and plan of care. Patient was seen and examined.
--- NOTE | 2017-10-06 22:11 | PN ---
PROGRESS NOTE The patient with a non STEMI. Medications were reviewed. Patient was stabilized on glipizide 5 mg b.i.d. for diabetes. He will be discharged home today. CHEYANNE / RYAN: [id number] /
[2017-10-07] MEDS ORDERED: CLOPIDOGREL 75 MG TAB PO SCH (09:00)
--- NOTE | 2017-10-08 05:38 | CDI ---
Last Revision, January 2017 Documentation Clarification Form Date: 10/08/2017 5:17:00 AM From: Daylin Calderon Phone: If you have a question about this query, please contact Alison Islas Plant Puller at [phone] between 8am and 5pm. Admit Date: 10/02/2017 1:24:00 AM Patient Name: Mode Arrington Visit Number: [id number] Discharge Date: 10/06/17 ATTENTION: The Clinical Documentation Specialists (CDI) and [facility] Coding Staff appreciate your assistance in clarifying documentation. Please respond to the clarification below the line at the bottom and electronically sign. The CDI & [facility] Coding staff will review the response and follow-up if needed. Please note: Queries are made part of the Legal Health Record. If you have any questions, please contact the author of this message via ITS. Yasmany Vega MD History/Risk Factors:. NSTEMI, ankle edema, cough, leg swelling, smoker, DM Clinical Indicators: EKG Left posterier block BNP: 4760 Echocardiogram Results: Chest X Ray: Continued CHF with interstitial edema Treatment: PTCA In your professional opinion, can you please clarify the acuity and type of CHF if known? Systolic Heart Failure: Acute Chronic Acute on Chronic Diastolic Heart Failure: Acute Chronic Acute on Chronic Systolic & Diastolic Heart Failure: Acute Chronic Acute on Chronic Heart Failure Unable to Determine Other, please specify MTDD
--- NOTE | 2017-10-09 13:26 | CDI ---
Last Revision, January 2017 Documentation Clarification Form Date: 10/08/2017 5:17:00 AM From: Daylin Calderon Phone: If you have a question about this query, please contact Alison Islas Wave Guide Assembler at [phone] between 8am and 5pm. Admit Date: 10/02/2017 1:24:00 AM Patient Name: Mode Arrington Visit Number: [id number] Discharge Date: 10/06/17 ATTENTION: The Clinical Documentation Specialists (CDI) and [facility] Coding Staff appreciate your assistance in clarifying documentation. Please respond to the clarification below the line at the bottom and electronically sign. The CDI & [facility] Coding staff will review the response and follow-up if needed. Please note: Queries are made part of the Legal Health Record. If you have any questions, please contact the author of this message via ITS. Dr. Sampson: History/Risk Factors:. NSTEMI, ankle edema, cough, leg swelling, smoker, DM Clinical Indicators: EKG Left posterier block BNP: 4760 Echocardiogram Results: Chest X Ray: Continued CHF with interstitial edema Treatment: PTCA In your professional opinion, can you please clarify the acuity and type of CHF if known? Systolic Heart Failure: Acute Chronic Acute on Chronic Diastolic Heart Failure: Acute Chronic Acute on Chronic Systolic & Diastolic Heart Failure: Acute Chronic Acute on Chronic Heart Failure Unable to Determine Other, please specify MTDD
--- NOTE | 2017-10-10 12:05 | CDI ---
Documentation Clarification Form Date: 10/10/17 From: Daylin Calderon- Wellness Coordinator Admit Date: 10/02/2017 1:24:00 AM Patient Name: Mode Arrington Visit Number: [id number] Discharge Date: 10/06/17 ATTENTION: The Clinical Documentation Specialists (CDI) and [facility] Coding Staff appreciate your assistance in clarifying documentation. Please respond to the clarification below the line at the bottom and electronically sign. The CDI & [facility] Coding staff will review the response and follow-up if needed. Please note: Queries are made part of the Legal Health Record. If you have any questions, please contact the author of this message via ITS. Dr. Sampson, Documentation of heart failure: Your 10/02 Consult report -Symptoms of congestive heart failure BNP: 4760 Chest X Ray: Continued CHF with interstitial edema Treatment: IVP Lasix [address] Sampson on 10/02/17 and PO Lasix provided after that. In your professional opinion, can you please clarify the acuity and type of CHF if known? Systolic Heart Failure: Acute Chronic Acute on Chronic Diastolic Heart Failure: Acute Chronic Acute on Chronic Systolic & Diastolic Heart Failure: Acute Chronic Acute on Chronic Heart Failure Unable to Determine Other, please specify MTDD
--- NOTE | 2017-10-10 12:10 | ECHOF ---
Referral Reason: MEASUREMENTS -------- HEIGHT: 177.8 cm WEIGHT: 79.4 kg BP: IVSd: 1.0 cm (0.6 - 1.1) LVIDd: 5.4 cm (3.9 - 5.3) LVPWd: 1.3 cm (0.6 - 1.1) IVSs: 1.4 cm LVIDs: 3.7 cm LVPWs: 1.6 cm LAESV Index (A-L): 22.06 ml/m Ao Diam: 2.8 cm (2.0 - 3.7) AV Cusp: 1.8 cm (1.5 - 2.6) LA Diam: 3.6 cm (2.7 - 3.8) MV EXCURSION: 19.089 mm (> 18.000) MV EF SLOPE: 168 mm/s (70 - 150) EPSS: 1.2 cm MV E Rey: 1.19 m/s MV DecT: 131 ms MV A Rey: 0.34 m/s MV E/A Ratio: 3.56 RAP: 15.00 mmHg RVSP: 25.94 mmHg FINDINGS -------- Sinus rhythm. This was a technically good study. The left ventricular size is normal. Left ventricular wall thickness is normal. Overall left vent ricular systolic function is moderate-severely impaired with, an EF between 30 - 35 %. Basal anteri or LV wall motion is hypokinetic. Basal lateral LV wall motion is hypokinetic. Basal inferior L V wall motion is hypokinetic. Mid anterior LV wall motion is hypokinetic. Mid lateral LV wall m otion is hypokinetic. Mid inferior LV wall motion is hypokinetic. Inferiorlateral Hypokinesis Aortic valve is trileaflet and is mildly thickened. The mitral valve leaflets are mildly thickened. Moderate mitral regurgitation is present. Mild tricuspid regurgitation present. The right ventricular systolic pressure, as measured by Doppl er, is 25.94mmHg. Trace/mild (physiologic) pulmonic regurgitation. The aortic root size is normal. The inferior vena cava is mildly dilated. The pericardium is normal. CONCLUSIONS -------- 1. Sinus rhythm. 2. This was a technically good study. 3. The left ventricular size is normal. 4. Left ventricular wall thickness is normal. 5. Overall left ventricular systolic function is moderate-severely impaired with, an EF between 30 - 35 %. 6. Basal anterior LV wall motion is hypokinetic. 7. Basal lateral LV wall motion is hypokinetic. 8. Basal inferior LV wall motion is hypokinetic. 9. Mid anterior LV wall motion is hypokinetic. 10. Mid lateral LV wall motion is hypokinetic. 11. Mid inferior LV wall motion is hypokinetic. 12. Inferiorlateral Hypokinesis 13. Aortic valve is trileaflet and is mildly thickened. 14. The mitral valve leaflets are mildly thickened. 15. Moderate mitral regurgitation is present. 16. Mild tricuspid regurgitation present. 17. The right ventricular systolic pressure, as measured by Doppler, is 25.94mmHg. 18. Trace/mild (physiologic) pulmonic regurgitation. 19. The aortic root size is normal. 20. The inferior vena cava is mildly dilated. 21. The pericardium is normal. FIXED INCOME DIRECTOR: Regine Khanna RDCS
--- NOTE | 2017-10-13 09:46 | CDI ---
Documentation Clarification Form Date: 10/13/17 From: Alison Islas/Daylin Calderon Admit Date: 10/02/2017 1:24:00 AM Patient Name: Mode Arrington Visit Number: [id number] Discharge Date: 10/06/17 ATTENTION: The Clinical Documentation Specialists (CDI) and [facility] Coding Staff appreciate your assistance in clarifying documentation. Please respond to the clarification below the line at the bottom and electronically sign. The CDI & [facility] Coding staff will review the response and follow-up if needed. Please note: Queries are made part of the Legal Health Record. If you have any questions, please contact the author of this message via ITS. Dr. Sampson, Your 10/02 consult states symptoms of congestive heart failure and you ordered IV Lasix. History/Risk Factors:. ankle edema, cough, leg swelling, smoker BNP: 4760 Chest X Ray: Continued CHF with interstitial edema Treatment: IVP Lasix [address] Sampson on 10/02/17 and PO Lasix provided after that. In your professional opinion, can you please clarify the acuity and type of CHF if known? Systolic Heart Failure: Acute XAcute on Chronic Diastolic Heart Failure: Acute Acute on Chronic Systolic & Diastolic Heart Failure: Acute Acute on Chronic Heart Failure Unable to Determine MTDD
== END 2017-10-06 15:27 | disposition home or self-care (01) | DRG 247 ==
LOC: EC 23:56 → 6SEL 10-02 01:24
PROVIDERS: ADMIT Family Medicine; ATTEND Family Medicine
PROC: B2121ZZ Fluoroscopy of Single Coronary Artery Bypass Graft using Low Osmolar Contrast (ICD-10-PCS; 2017-10-03)
PROC: B2111ZZ Fluoroscopy of Multiple Coronary Arteries using Low Osmolar Contrast (ICD-10-PCS; 2017-10-03)
PROC: B2151ZZ Fluoroscopy of Left Heart using Low Osmolar Contrast (ICD-10-PCS; 2017-10-03)
PROC: 4A023N7 Measurement of Cardiac Sampling and Pressure, Left Heart, Percutaneous Approach (ICD-10-PCS; principal; 2017-10-03 09:00)
PROC: 027034Z Dilation of Coronary Artery, One Artery with Drug-eluting Intraluminal Device, Percutaneous Approach (ICD-10-PCS; 2017-10-03 09:00)
DX: I21.4 Non-ST elevation (NSTEMI) myocardial infarction (principal); I25.810 Atherosclerosis of coronary artery bypass graft(s) without angina pectoris; J44.1 Chronic obstructive pulmonary disease with (acute) exacerbation; J45.901 Unspecified asthma with (acute) exacerbation; E11.65 Type 2 diabetes mellitus with hyperglycemia; E78.5 Hyperlipidemia, unspecified; F17.210 Nicotine dependence, cigarettes, uncomplicated; F41.9 Anxiety disorder, unspecified; I11.0 Hypertensive heart disease with heart failure; I25.5 Ischemic cardiomyopathy; I50.9 Heart failure, unspecified; K21.9 Gastro-esophageal reflux disease without esophagitis; Z79.82 Long term (current) use of aspirin; Z79.84 Long term (current) use of oral hypoglycemic drugs; Z82.5 Family history of asthma and other chronic lower respiratory diseases; Z57.5 Occupational exposure to toxic agents in other industries; Z95.1 Presence of aortocoronary bypass graft
CPT/HCPCS: 36415; 71046; 80048; 80053; 80061; 82550; 82553; 83036; 83735; 83880; 84443; 84484; 85025; 85347; 85379; 85610; 85730; 93005; 93306; 93459; 93970; 94640; 94760; 96365; 96376; 99285

== ENCOUNTER → 2018-04-21 | Outpatient (CLI) | payer OTHER ==
[2018-04-21 18:47] LABS: LDL Cholesterol,Calculated 37.8 mg/dL (0.0-131.0); VLDL Calculation 36.2 mg/dL (5.00-40.00)
== END ==
LOC: LABWHC1 11:26
PROVIDERS: ATTEND Nurse Practitioner Adult Health
DX: E78.2 Mixed hyperlipidemia (principal)
CPT/HCPCS: 36415; 80061; 84450; 84460